=== PATIENT | male | born 1975 | race African-American/Black ===

== ENCOUNTER 2020-11-30 09:23 | Outpatient (REF) | payer OTHER, SELFPAY ==
[2020-11-30 11:34] LABS: Hematocrit 40.3 % (42-52); Hemoglobin 13.6 g/dl (14.0-18.0); Mean Corpuscular HGB Conc 33.7 g/dl (31.0-36.0); Mean Corpuscular Hemoglobin 29.6 pg (27.0-33.0); Mean Corpuscular Volume 87.8 fL (80-98); Mean Platelet Volume 9.9 fL (9.4-12.4); Platelet Count 299 X10*3/uL (160-400); Red Blood Count 4.59 X10*6/uL (4.60-5.80); White Blood Count 8.8 X10*3/uL (4.8-10.8)
[2020-11-30 11:49] LABS: Alanine Aminotransferase 15 U/L (0-40); Albumin Level 4.1 g/dL (3.5-5.0); Alkaline Phosphatase 61 U/L (39-117); Anion Gap 11 (12-20); Aspartate Amino Transferase 13 U/L (5-37); Bilirubin Direct < 0.2 mg/dL (0.0-0.5); Bilirubin Total 0.5 mg/dL (0.0-1.0); Blood Urea Nitrogen 13 mg/dL (9-16); Calcium 9.4 mg/dL (8.4-10.2); Carbon Dioxide 27 mmol/L (22-29); Chloride 107 mmol/L (96-108); Cholesterol 152 mg/dL; Estimated Glomerular Filt Rate > 60; Glucose Fasting 104 mg/dL (60-99); HDL Cholesterol 33 mg/dL; LDL Cholesterol Calculated 82 mg/dl; Potassium 4.1 mmol/L (3.3-5.1); Sodium 141 mmol/L (135-145); Total Protein 7.2 g/dL (6.5-8.0); Triglycerides 189 mg/dL
== END 2020-11-30 09:24 | disposition home or self-care (01) ==
LOC: HO.HMGCLDS 09:23
PROVIDERS: Visit Provider Physician Assistant
DX: Z00.00 Encounter for general adult medical examination without abnormal findings (principal)
CPT/HCPCS: 36415; 80053; 80061; 80076; 82248; 85027

== ENCOUNTER 2021-05-18 09:44 | Outpatient (REF) | payer OTHER, SELFPAY ==
[2021-05-18 10:14] LABS: MANUAL DIFF FLAG NO
[2021-05-18 10:29] LABS: Basophils Absolute Auto 0.1 X10*3/uL (0.0-0.2); Basophils Percent Auto 0.6 % (0-2); Eosinophils Absolute Auto 0.1 X10*3/uL (0.0-0.4); Eosinophils Percent Auto 1.3 % (0-4); Hematocrit 40.3 % (42.0-52.0); Imm Gran Abs Auto 0.03 X10*3/uL (0.00-0.03); Imm Gran Pct Auto 0.3 % (0.0-0.4); Lymphocytes Absolute Auto 1.9 X10*3/uL (1.2-4.9); Lymphocytes Percent Auto 22.4 % (20-40); Mean Corpuscular HGB Conc 34.7 g/dl (31.0-36.0); Mean Corpuscular Volume 86.5 fL (80.0-98.0); Mean Platelet Volume 9.3 fL (9.4-12.4); Monocytes Absolute Auto 0.9 X10*3/uL (0.1-1.2); Monocytes Percent Auto 10.3 % (2-11); Neutrophils Absolute Auto 5.7 x10*3/uL (2.0-8.3); Neutrophils Percent Auto 65.1 % (45-73); Platelet Count 297 X10*3/uL (160-400); Red Blood Count 4.66 X10*6/uL (4.60-5.80); Red Cell Distribution Width 13.9 % (11.0-16.0); White Blood Count 8.7 X10*3/uL (4.8-10.8)
[2021-05-18 11:14] LABS: Estimated Average Glucose 114 mg/dL; Hemoglobin A1c % 5.6 %
[2021-05-18 11:42] LABS: TSH reflex Free T4 2.19 uIU/mL (0.32-4.0)
[2021-05-18 11:45] LABS: Alanine Aminotransferase 13 U/L (0-40); Albumin Level 4.2 g/dL (3.5-5.0); Alkaline Phosphatase 80 U/L (39-117); Anion Gap 11 (12-20); Aspartate Amino Transferase 18 U/L (5-37); Bilirubin Total 0.3 mg/dL (0.0-1.0); Blood Urea Nitrogen 10 mg/dL (9-16); Calcium 9.5 mg/dL (8.4-10.2); Carbon Dioxide 26 mmol/L (22-29); Chloride 106 mmol/L (96-108); Cholesterol 150 mg/dL; Estimated Glomerular Filt Rate > 60; Glucose Fasting 104 mg/dL (60-99); HDL Cholesterol 37 mg/dL; LDL Cholesterol Calculated 95 mg/dl; Potassium 4.3 mmol/L (3.3-5.1); Sodium 139 mmol/L (135-145); Total Protein 7.8 g/dL (6.5-8.0); Triglycerides 92 mg/dL
[2021-05-18 11:52] LABS: Folate > 20.0 ng/mL (> or = 4.0); Vitamin B12 > 2000 pg/mL (200-900)
[2021-05-22 12:11] LABS: Testosterone, Total 112 ng/dL (250-1100)
[2021-05-22 14:26] LABS: Vitamin D 25-OH, D2 <4 ng/mL; Vitamin D 25-OH, D3 35 ng/mL; Vitamin D 25-OH, Total 35 ng/mL (30-100)
== END 2021-05-18 09:45 | disposition home or self-care (01) ==
LOC: HO.LAB 09:44
PROVIDERS: PCP Nurse Practitioner Acute Care; Visit Provider Nurse Practitioner Acute Care
DX: Z12.5 Encounter for screening for malignant neoplasm of prostate (principal); Z76.89 Persons encountering health services in other specified circumstances
CPT/HCPCS: 36415; 80053; 80061; 82306; 82607; 82746; 83036; 84153; 84403; 84443; 85025

== ENCOUNTER 2021-10-28 08:27 | Emergency (ER) | payer OTHER, SELFPAY ==
[2021-10-28 08:39] VITALS: BP 142/87; PULSE 67; RESP 20; TEMP 36.8; O2SAT 99; BMI 30.1
--- NOTE | 2021-10-28 09:35 | ED_ITS ---
HPI - Eye Problem General Chief complaint: Eye Problems Stated complaint: popped blood vessel Time Seen by Provider: 10/28/21 09:32 Source: patient Mode of arrival: ambulatory Limitations: no limitations History of Present Illness HPI Narrative: 45 yo male presents to the ER for evaluation of left eye redness that he noticed when he got up today. He went to [facility] to get Visine for red eyes but the pharmacist told him that's not what those drops are for and he should get evaluated in the emergency room. He reports having a slight foreign body sensation earlier, now resolved. He denies any discharge, vision changes or injury to the eye. He states he sneezed yesterday but did not think anything of it. No vomiting or excessive coughing. MD chief complaint: eye redness and foreign body Onset (ago): hour(s) Onset description: sudden Duration: constant Location: left eye Eye Symptoms: redness Place: home Mechanism: none Severity: mild Associated symptoms: none Treatments Prior to Arrival: none Related Data Previous Rx's Medication Instructions Recorded carbamide peroxide 6.5 % ear drops 5 drp otic (ears) DAILY 4 days #15 06/02/21 (Debrox) mL testosterone 50 mg/5 gram (1 %) 1 tube transdermal QAM #150 grams 06/02/21 transdermal gel (Testim) Allergies Allergy/AdvReac Type Severity Reaction Status Date / Time No Known Allergies Allergy Verified 06/02/21 09:37 Review of Systems Review of Systems: Constitutional: No Fever, No Chills ENT/Mouth: No sore throat, No Rhinorrhea Eyes: No Eye Pain, No Swelling, + Redness, No vision changes, No discharge Cardiovascular: No Chest Pain, No SOB Respiratory: No Cough, No Sputum Gastrointestinal:No Vomiting Skin: No Skin Lesions, No rash Neuro: No Headache Heme/Lymph: No Lymphadenopathy PMFSH Past Medical History Surgical History History of surgery on arm Social History Social History Housing: Apartment Alcohol intake: current Alcohol intake frequency: holidays/special occasions only Alcohol type: wine Patient Tobacco Use Status: Never used Tobacco Second Hand Smoke Exposure: Yes Advance Directives: No Advance Directives Information Provided: Yes service: No Current occupational status: employed Cognitive needs: No Hearing needs: No Vision needs: No Physical Exam Vital Signs: Vital Signs: Last Vital Signs Temp 98.3 F 10/28/21 08:39 Pulse 67 10/28/21 08:39 Resp 20 10/28/21 08:39 BP 142/87 H 10/28/21 08:39 Pulse Ox 99 10/28/21 08:39 O2 Del Method 10/28/21 08:39 BMI result Body Mass Index 30.1 Appearance: Alert. Oriented X3. No acute distress. Eyes: Normal inspection of external eye structures, normal lids. EOMI. Pupils equal, round and reactive to light. Left eye with blood in the subconjuctival space in the area of 4-5 o-clock. Fluoroscene exam with no abrasions, no appreciated FB, no ulcerations. ENT: Pharynx normal. Neck: Normal inspection. Neck supple. Respiratory: No respiratory distress. Speaks in complete sentences Skin: Skin warm and dry. Normal skin color. Normal skin turgor. No rashes. Extremities: Normal inspection x4 Neuro: Oriented X 3. Grossly normal, nonfocal Course Course Course Narrative: 45-year-old male presents to the ER with nontraumatic left eye redness that he woke up with this morning. Denies any trauma, thinks he made of sneezed a few times yesterday but is unsure. He had a transient foreign body sensation that is now resolved. No vision changes or discharge. On examination with tetracaine and fluorescein there are no corneal abrasions, ulcerations present. Exam and clinical presentation are most consistent with a subconjunctival hemorrhage. Patient was counseled on the diagnosis and expected healing course. He is stable for discharge home with supportive care. Critical Care Time Critical Care Time Critical Care Time: No Discharge Plan Discharge Clinical Impression: Subconjunctival hemorrhage Patient Disposition: Home, Self-Care Instructions: Subconjunctival Hemorrhage (ED) Additional Instructions: Your eye examination today was normal. The blood in your eye will reabsorbed and resolve on its own. There is no harm to your eye. Follow-up with the eye doctor below if you develop any concerning signs or symptoms like pain or change in vision. Prescriptions: No Action Debrox 6.5 % drops 5 drp otic (ears) DAILY 4 Days Qty: 15 0RF testosterone [Testim] 50 mg/5 gram (1 %) gel 1 tube transdermal QAM Qty: 150 2RF Referrals: Hernan Yi [Physician] -
[2021-10-28] MEDS: Fluorescein Sodium STRIP 1 STRIP EYE-LEFT (09:37)
[2021-10-28] MEDS: Tetracaine HCl/PF 0.5% Oph Sol 4 ML DROPS 1 DROP EYE-LEFT (09:37)
== END 2021-10-28 09:55 | disposition home or self-care (01) ==
PROVIDERS: Emergency Provider Student in an Organized Health Care Education/Training Program
DX: H11.32 Conjunctival hemorrhage, left eye (principal)
CPT/HCPCS: 99283

== ENCOUNTER 2021-12-11 13:54 | Emergency (ER) | payer OTHER, SELFPAY ==
[2021-12-11 15:54] VITALS: BP 146/101; PULSE 58; RESP 15; TEMP 37.3; O2SAT 100; BMI 30.1
[2021-12-11] MEDS: predniSONE 20 MG TABLET 60 MG PO (17:10)
[2021-12-11] MEDS: Ketorolac Tromethamine 30 MG/ML VIAL IM (17:12)
--- NOTE | 2021-12-11 17:41 | ED.GENADULT ---
HPI - General Adult General Chief complaint: Back Pain/Injury Stated complaint: Sciatic pain Time Seen by Provider: 12/11/21 16:06 Source: patient Mode of arrival: ambulatory Limitations: no limitations History of Present Illness HPI narrative: 45 yold male with pmh of right sciatica pain presents to the ED for sciatica pain exacerbation. Patient states right buttock pain raidating down right leg. patient states no recent trauma, abdominal pain, [place], vomitting, dysuria, hematuria, or urinary/bowel incontinence. Related Data Previous Rx's Medication Instructions Recorded carbamide peroxide 6.5 % ear drops 5 drp otic (ears) DAILY 4 days #15 11/29/21 (Debrox) mL gabapentin 300 mg capsule 300 mg PO TID 30 days #90 caps 11/29/21 meloxicam 15 mg tablet 15 mg PO DAILY 30 days #30 tabs 11/29/21 sertraline 25 mg tablet 25 mg PO DAILY #30 tabs 12/07/21 tizanidine 2 mg tablet 2 mg PO BEDTIME PRN muscle 12/07/21 spasticity #7 tabs cyclobenzaprine 10 mg tablet 10 mg PO TID PRN muscle spasm 7 12/11/21 days #21 tabs prednisone 20 mg tablet 40 mg PO DAILY 5 days #10 tabs 12/11/21 Allergies Allergy/AdvReac Type Severity Reaction Status Date / Time No Known Allergies Allergy Verified 12/07/21 08:45 Review of Systems Review of Systems: right sided sciatica pain Yes all other systems are reviewed and are negative PMFSH Past Medical History Surgical History History of surgery on arm Social History Social History Housing: Apartment Alcohol intake: current Alcohol intake frequency: holidays/special occasions only Alcohol type: wine Patient Tobacco Use Status: Never used Tobacco e-Cigarette/Vaping Use: Never Used Second Hand Smoke Exposure: Yes Advance Directives: No Advance Directives Information Provided: Yes service: No Current occupational status: employed Current occupational exposures/hazards: No Cognitive needs: No Hearing needs: No Vision needs: No Physical Exam ED Vital Signs: Vital Signs - 24 hr 12/11/21 15:54 Temperature 99.2 F Pulse Rate 58 Respiratory Rate 15 Blood Pressure 146/101 H Pulse Oximetry 100 Oxygen Delivery Method Room Air BMI result Body Mass Index 30.1 Const General: cooperative, healthy appearing, comfortable, no acute distress and well developed Orientation/consciousness: patient oriented x3 [facility] Head: Yes normal to inspection, Yes No palpable skull fracture present, Yes normocephalic, Yes atraumatic and No abrasion Eyes General: appearance normal, both eyes and all related structures Neck Neck: Yes normal visual inspection, Yes full ROM, Yes no lymphadenopathy, Yes no meningeal signs, Yes trachea midline, Yes supple, No anterior neck swelling and No tender Chest Chest palpation & inspection: normal inspection of the chest and normal palpation of entire chest wall Resp Effort & Inspection: normal respiratory effort and able to speak in complete sentences Auscultation: clear to auscultation bilaterally Cardio Jugular venous distension: no JVD Heart sounds: S1 normal heart sound present and S2 normal heart sound present GI Inspection: Yes normal to inspection and No abdominal wall ecchymosis Palpation (GI): Soft to palpation, not firm, nontender, no guarding and not rigid General: No CVA tenderness and Yes no CVA tenderness Back/Spine/Pelvis Back: no CVA tenderness, No CVA tenderness and No back tenderness Back/spine/pelvis image: 1. positive for tenderness on palpation. Negative for any ecchymoss, redness, crepitus, fluctulant mass Skin General skin exam: no rashes or lesions noted and elasticity normal Neuro General: patient oriented x3, gait normal and no meningeal signs Cranial nerves: Yes CN's II-XII intact bilaterally Extrem General: Yes normal to inspection and Yes full ROM Psych Appearance: grossly normal, well kempt and not disheveled Course Course Course Narrative: pain meds ordered Reevaluation(s) Reevaluation #1: patient already on setraline, meloxicam, gabapentin, and tizandind. patient has one lasst pill of tizandine. pain improved. Time: 17:44 Medical Decision Making [facility] Narrative Medical decision making narrative: Sciatica Discharge Plan Discharge Clinical Impression: Sciatica Patient Disposition: Home, Self-Care Instructions: Sciatica (ED) Additional Instructions: Return to the ED for any urinary/bowel incontinence, severe back pain, fever, chills, nausea, vomiting, abdominal pain, flank pain, or any other concerning symptoms. Please follow up wtih PCP. Start taking cyclobenzaprine after you finish your tizanidine prescription. Do not take at he same time. Prescriptions: New prednisone 20 mg tablet 40 mg PO DAILY 5 Days Qty: 10 0RF cyclobenzaprine 10 mg tablet 10 mg PO TID PRN (Reason: muscle spasm) 7 Days Qty: 21 0RF Rx Instructions: Side effect is drowsiness. Do not take at work or while driving. No Action Debrox 6.5 % drops 5 drp otic (ears) DAILY 4 Days Qty: 15 0RF meloxicam 15 mg tablet 15 mg PO DAILY 30 Days Qty: 30 0RF gabapentin 300 mg capsule 300 mg PO TID 30 Days Qty: 90 0RF tizanidine 2 mg tablet 2 mg PO BEDTIME PRN (Reason: muscle spasticity) Qty: 7 0RF sertraline 25 mg tablet 25 mg PO DAILY Qty: 30 1RF Interventions: ED Discharge Assessment Last Done: 12/11/21 18:30 Discharge Date/Time: 12/11/21 18:31 Print Language: Danish
== END 2021-12-11 18:31 | disposition home or self-care (01) ==
PROVIDERS: Emergency Provider Internal Medicine; PCP Nurse Practitioner Family
DX: M54.41 Lumbago with sciatica, right side (principal); Z79.899 Other long term (current) drug therapy
CPT/HCPCS: 96372; 99283; 99284; J1885

== ENCOUNTER 2022-02-20 08:00 | Outpatient (RCR) | payer OTHER, SELFPAY ==
--- NOTE | 2021-12-21 09:03 | MHC.PT.EP ---
[facility] [place] [facility] [place] [facility] [place] Office [address] Lulu Russell [address] [phone] F: [phone] F: [phone] F: [phone] F: [phone] Physical Therapy Plan of Care Date of Evaluation: Date of Surgery: Diagnosis: pain in R leg Assessment: 46 y/o male referred to PT with pain in R leg. He has R-sided LBP that radiates into buttock and travels down anterior thigh to great toe. Numbness along anterior R leg. 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 S/s consistent with lumbar derangement with relevant lateral component secondary to decreased lumbar AROM, decreased R-sided LE strenght, absent R patella reflex, absent B achilles reflexes, slightly altered sensation R leg, (-) clonus, (-) bowel/bladder/saddel anesthesia, (+) SLR, and impaired postural awareness. With [place] assessment, his leg pain improved with prone lying with hips shifted to the L. Educated pt on posture, precautions of home exercises (peripheralization/centralization), and purpose of PT. Recommend PT 3x/week for 4 weeks Frequency and Duration: The patient will be seen 3x/week for 4 weeks Short Term Goals: 2 week 1. Compliant with HEP 2. Demosntrate neutral spine in standing 3. Pt will demonstrate centralization of R LE pain to buttocks or above 4. I with lumbar roll [employer] Goals: 4 weeks 1. I with HEP and self management of sx 2. Pt will be able to sleep > 75% of the night with pain < 3/10 3. Pt will be able to bend with proper mechanics and pain < 3/10 Treatment Plan: Modalities to reduce pain, spasms and effusion. Manual therapy to restore motion and function. Therapeutic exercise to improve strength and flexibility. Neuromuscular re-education for posture and balance. Therapeutic activities to return to functional activities of daily living. Electronically signed by: Zee Khoury PT Please sign and return to therapist. Thank you for your referral.
--- NOTE | 2022-02-23 09:25 | MHC.PT.DC ---
[facility] [place] Office [place] Office [place] Office [address] Lulu Russell [address] [phone] F: [phone] F: [phone] F: [phone] F: [phone] Physical Therapy Discharge Report Diagnosis: pain in R leg Date of Surgery: Date of Evaluation: 12/21/21 Date of Discharge: 02/23/22 Treatments to Date: 12 Cancellations to Date: 2 No Shows to Date: 2 Discharge Status: Improved Function Independent with HEP Discharge Summary: He is I with HEP and is appropriate for d/c at this time. He continues to have some pain, however has better understanding of self management and has returned to light gym program. Electronically signed by: Zee Khoury PT Please sign and return to therapist. Thank you for your referral.
== END 2022-02-23 09:25 | disposition home or self-care (01) ==
LOC: HO.PT 08:00
PROVIDERS: PCP Nurse Practitioner Family; Visit Provider Nurse Practitioner Family
DX: M79.604 Pain in right leg (principal)
CPT/HCPCS: 97110; 97140; 97161